=== PATIENT | female | born 1990 | race Two or more races ===

== ENCOUNTER 2019-02-08 17:16 | Emergency (ER) | payer MEDICAID ==
[~2019-02-08] VITALS: Ht 165.1 cm; Wt 76.0 kg
[2019-02-08 18:15] VITALS: BP 132/89
== END 2019-02-09 00:13 | disposition left against medical advice (07) ==
LOC: ER 17:16
DX: O20.9 Hemorrhage in early pregnancy, unspecified (principal); Z3A.01 Less than 8 weeks gestation of pregnancy; Z53.21 Procedure and treatment not carried out due to patient leaving prior to being seen by health care provider